=== PATIENT | female | born 1950 ===

== ENCOUNTER 2017-07-21 16:12 | Emergency (ER) | payer MEDICARE, MEDICAID ==
[2017-07-21 16:25] VITALS: BMI 26.4
[2017-07-21 16:27] VITALS: RESP 20
[2017-07-21] MEDS ORDERED: Sodium Chloride 0.9% 1,000 ML IV ONE (18:04)
[2017-07-21] MEDS ORDERED: Sodium Chloride 0.9% 1,000 ML ONE (18:32)
[2017-07-21 18:37] LABS: BASO % 0.9 % (0.0-2.0); EOS # 0.2 K/uL (0.0-0.7); EOS % 4.4 % (0.0-4.0); HEMATOCRIT 33.2 % (34.0-47.0); LYMPH % 50.8 % (20.0-40.0); MEAN CELL VOLUME 92.9 fL (81.0-99.0); MEAN CORPUSCULAR HEMOGLOBIN 31.4 pg (27.0-31.0); MEAN CORPUSCULAR HGB CONC 33.7 g/dL (33.0-37.0); MEAN PLATELET VOLUME 9.7 fL (7.2-11.7); MONO # 0.3 K/uL (0.0-0.8); MONO % 8.6 % (0.0-10.0); NRBC % 0.1 % (0.0-2.0)
[2017-07-21 18:47] LABS: CHLORIDE 99 mmol/L (98-107)
[2017-07-21 18:47] LABS: RBC URINE < 1 /hpf (0-3); URINE BILIRUBIN NEGATIVE (NEGATIVE); URINE COLOR Colorless (YELLOW); URINE GLUCOSE (UA) NORMAL (Normal); URINE KETONE NEGATIVE (NEGATIVE); URINE LEUKOCYTE ESTERASE NEG Leu/uL (Negative); URINE PROTEIN NEGATIVE (NEGATIVE); URINE UROBILINOGEN NORMAL mg/dL (0.2-1.0); WBC URINE 1 /hpf (0-5)
[2017-07-21 18:48] LABS: SODIUM 134 mmol/L (132-148)
[2017-07-21 18:50] LABS: URINE BLOOD NEGATIVE (NEGATIVE)
[2017-07-21 18:50] LABS: AST/SGOT 29 U/L (14-36); BILIRUBIN,TOTAL 0.3 mg/dL (0.2-1.3); CARBON DIOXIDE 26 mmol/L (22-30); GFR AFRICAN-AMERICAN > 60
[2017-07-21 18:51] LABS: ALB/GLOB RATIO 1.7 (1.0-2.1); ALKALINE PHOSPHATASE 46 U/L (38-126); ALT/SGPT 30 U/L (9-52); BLOOD UREA NITROGEN 15 mg/dL (7-17); CALCIUM 8.9 mg/dl (8.6-10.4); GLUCOSE,RANDOM 79 mg/dL (65-105); TOTAL PROTEIN 6.8 g/dL (6.3-8.3)
--- NOTE | 2017-07-21 19:31 | C.PDOC ---
Time Seen by Provider: 07/21/17 17:30 Chief Complaint (Nursing): Dizziness/Lightheaded History Per: Patient Onset/Duration Of Symptoms: Hrs (1) Current Symptoms Are (Timing): Gone Associated Symptoms Preceding Syncopal Episode: Vertigo Possible Causative Factor(s): Vertigo Fall Associated With With Symptoms: No Severity: Moderate Additional History Per: Prior Records - Symptoms Of CVA Associated Symptoms: denies: Impaired Speech, Seizure Activity, New Vision Deficit(Left), New Vision Deficit(Right), Decreased Ability To Walk, New Confusion Recent Head Trauma: No Past Medical History Reviewed: Historical Data, Nursing Documentation, Vital Signs Vital Signs: Last Vital Signs Temp 97.8 F 07/21/17 16:25 Pulse 67 07/21/17 16:25 Resp 20 07/21/17 16:25 BP 152/85 H 07/21/17 16:25 Pulse Ox 100 07/21/17 16:25 - Medical History PMH: No Chronic Diseases Family History: States: Unknown Family Hx - Social History Hx Alcohol Use: No Hx Substance Use: No - Immunization History Hx Tetanus Toxoid Vaccination: No Hx Influenza Vaccination: No Hx Pneumococcal Vaccination: No Review Of Systems Except As Marked, All Systems Reviewed And Found Negative. Constitutional: Negative for: Fever, Weakness Cardiovascular: Negative for: Chest Pain Respiratory: Negative for: Shortness of Breath Gastrointestinal: Negative for: Vomiting, Abdominal Pain Musculoskeletal: Negative for: Neck Pain Skin: Negative for: Rash Neurological: Positive for: Dizziness. Negative for: Weakness, Numbness, Incoordination, Change in Speech, Confusion, Seizures, Altered Mental Status Physical Exam - Physical Exam Appears: Non-toxic, No Acute Distress Skin: Normal Color, Warm, Dry, No Rash Head: Atraumatic, Normacephalic Eye(s): bilateral: Normal Inspection, PERRL, EOMI Ear(s): Bilateral: Normal Neck: Normal ROM, Supple Cardiovascular: Rhythm Regular Respiratory: Normal Breath Sounds, No Accessory Muscle Use Gastrointestinal/Abdominal: Soft, No Tenderness Back: No CVA Tenderness Extremity: Normal ROM Neurological/Psych: Oriented x3, Normal Speech, Normal Cognition, Normal Cranial Nerves, No Cerebellar Signs, Normal Motor, Normal Sensation ED Course And Treatment - Laboratory Results Result Diagrams: 07/21/17 18:27 07/21/17 18:27 Lab Interpretation: No Acute Changes ECG: Interpreted By Me, Viewed By Me ECG Rhythm: Sinus Rhythm ECG Interpretation: No Acute Changes Rate From EC O2 Sat by Pulse Oximetry: 100 Pulse Ox Interpretation: Normal Progress - Interventions Interventions:: Observation, Intravenous fluid - Data Reviewed Data Reviewed: Lab, EKG, Old records - Patient Status Patient status: Completely improved - Continuity of Care Discussed patient case with:: Patient, ED Nurse - Patient Plan Patient Plan: Discharge, F/U with PCP Disposition Counseled Patient/Family Regarding: Studies Performed, Diagnosis, Need For Followup, Rx Given - Disposition Referrals: Violette Bettencourt MD [Medical Doctor] - Disposition: HOME/ ROUTINE Disposition Time: 19:33 Condition: IMPROVED Additional Instructions: Follow up with your doctor for further evaluation and treatment. Return to the ER if you develop weakness, numbness, pass out, trouble walking or talking or seeing, worsening of symptoms or if you have any other concerns. Prescriptions: Meclizine [Meclizine*] 25 mg PO Q6 PRN #30 tab PRN Reason: Dizziness Instructions: Vertigo (ED) Forms: [employer] (Lao) Print Language: THAI - Clinical Impression Clinical Impression: Episode of dizziness
[2017-07-21 19:50] VITALS: BP 155/84; PULSE 66; TEMP 97.5; O2SAT 99
== END 2017-07-21 19:50 | disposition home or self-care (01) ==
LOC: C.ER 16:12
DX: R42 Dizziness and giddiness (principal)
CPT/HCPCS: 80053; 81001; 82948; 84484; 85025; 96360; 99285; J7040